=== PATIENT | male | born 1985 | race Caucasian/White ===

== ENCOUNTER 2023-11-19 18:18 | Outpatient (CLI) | payer MEDICAID | END 2023-11-19 23:59 | disposition critical access hospital (66) | LOC: EMS 18:18 | DX: R06.02 Shortness of breath (principal); R05.9 Cough, unspecified; R53.1 Weakness; R09.81 Nasal congestion; R07.9 Chest pain, unspecified | CPT/HCPCS: A0425; A0427; A0999 ==

== ENCOUNTER 2023-11-19 18:37 | Emergency (ER) | payer MEDICAID, OTHER ==
--- NOTE | 2023-11-19 19:33 | ED Physician Documentation ---
PD HPI URI - Stated complaint Stated Complaint: SOA - Chief complaint Chief Complaint: Resp - History obtained from History obtained from: Patient, Family - History of Present Illness Timing duration: Days (Several days) Timing details: Gradual onset Associated symptoms: Nasal congestion, Rhinorrhea. No: Fever, Chills Improves by: Rest, MDI/nebulizer Worsened by: Activity Recently seen: Not recently seen - Additional information Additional information: Patient is a 38-year-old male who complains of nasal congestion and difficulty breathing for the past 2 to 3 days. He was given a nebulizer treatment by EMS and feels like he is breathing here. No fevers. No chills. Has a history of asthma, does not have an inhaler currently. He states that he does not breathe very well through his mouth usually and is so congested in his nose that he feels like he is having difficulty breathing. He took Mariah-D prior to arrival. Review of Systems Constitutional: denies: Fever, Chills GI: denies: Vomiting, Diarrhea PD PAST MEDICAL HISTORY - Past Medical History Past Medical History: Yes Cardiovascular: None Respiratory: Asthma Neuro: None Endocrine/Autoimmune: None GI: None : None HEENT: None Psych: None Musculoskeletal: None Derm: None - Past Surgical History Past Surgical History: Yes Ortho: Other - Present Medications Home Medications: Ambulatory Orders Medication Instructions Recorded Confirmed Albuterol Sulf [Ventolin Hfa 1 - 2 puffs INH Q4HR PRN #1 each 11/19/23 Inhaler] Benzonatate [Tessalon] 200 mg PO TID PRN #30 cap 11/19/23 predniSONE [Deltasone] 40 mg PO DAILY #10 tablet 11/19/23 - Allergies Allergies/Adverse Reactions: Allergies Allergy/AdvReac Type Severity Reaction Status Date / Time codeine Allergy Hives Verified 11/19/23 18:44 vancomycin Allergy Hives Verified 11/19/23 18:44 - Social History Does the pt smoke?: No Smoking Status: Never smoker Does the pt drink ETOH?: No Does the pt have substance abuse?: No - Immunizations Immunizations are current?: Yes - POLST Patient has POLST: No PD ED PE NORMAL - Vitals Vital signs reviewed: Yes - General General: Alert and oriented X 3, No acute distress - HEENT HEENT: PERRL, Ears normal, Moist mucous membranes, Pharynx benign - Neck Neck: Supple, no meningeal sign - Cardiac Cardiac: RRR - Respiratory Respiratory: No respiratory distress, Other (Mild wheezing bilaterally, no respiratory distress) - Abdomen Abdomen: Soft, Non tender, Non distended - Derm Derm: Warm and dry, No rash - Neuro Neuro: Alert and oriented X 3 - Psych Psych: Normal mood, Normal affect Results - Vitals Vitals: Vital Signs - 24 hr 11/19/23 11/19/23 11/19/23 18:44 19:50 20:28 Temperature 37.0 C Heart Rate 82 85 87 Respiratory 18 20 16 Rate Blood Pressure 117/69 98/69 O2 Saturation 93 100 Oxygen O2 Source Room air - Labs Labs: Laboratory Tests 11/19/23 19:35 Nasal Adenovirus (PCR) NOT DETECTED Nasal B. parapertussis DNA (PCR) NOT DETECTED Nasal Coronavir 229E PCR NOT DETECTED Nasal Coronavir HKU1 PCR NOT DETECTED Nasal Coronavir NL63 PCR NOT DETECTED Nasal Coronavir OC43 PCR NOT DETECTED Nasal Enterovir/Rhinovir PCR DETECTED A Nasal Influenza B PCR NOT DETECTED Nasal Influenza A PCR NOT DETECTED Nasal Parainfluen 1 PCR NOT DETECTED Nasal Parainfluen 2 PCR NOT DETECTED Nasal Parainfluen 3 PCR NOT DETECTED Nasal Parainfluen 4 PCR NOT DETECTED Nasal RSV (PCR) NOT DETECTED Nasal B.pertussis DNA PCR NOT DETECTED Nasal C.pneumoniae (PCR) NOT DETECTED Bob Human Metapneumo PCR NOT DETECTED Nasal M.pneumoniae (PCR) NOT DETECTED Nasal SARS-CoV-2 (PCR) NOT DETECTED - Rads (name of study) cxr Relevant Findings:: Final report received, See rad report PD Medical Decision Making - ED course Complexity details: reviewed results, re-evaluated patient, considered differential, d/w patient ED course: 38-year-old male with what appears to be a viral URI. He is positive for rhinovirus on his respiratory panel. He was given prednisone, Afrin and albuterol here. Breathing much easier. No hypoxia. No respiratory distress. We will place him on steroids for home, prescribe an albuterol inhaler and prescribed cough medication. He can also use Afrin for nasal congestion, counseled not to use longer than 2 to 3 days. No pneumonia on chest x-ray. No evidence of sepsis. No hypoxia. No respiratory distress. Patient counseled regarding signs and symptoms for which I believe and urgent re-evaluation would be necessary. Patient with good understanding of and agreement to plan and is comfortable going home at this time This document was made in part using voice recognition software. While efforts are made to proofread this document, sound alike and grammatical errors may occur. Departure - Departure Disposition: 01 Home, Self Care Clinical Impression: Viral URI with cough Condition: Good Instructions: ED Viral Syndrome Follow-Up: your,doctor in 1 week if not better [Other] Prescriptions: Albuterol Sulf [Ventolin Hfa Inhaler] 1 - 2 puffs INH Q4HR PRN #1 each PRN Reason: Shortness Of Air/Wheezing predniSONE [Deltasone] 40 mg PO DAILY #10 tablet Benzonatate [Tessalon] 200 mg PO TID PRN #30 cap PRN Reason: Cough Comments: Your chest x-ray does not show any acute abnormalities today. You can also use Afrin to help with nasal congestion for the next 2 to 3 days, do not use it longer than 3 days. I will contact you later tonight with the results of your respiratory swab. Forms: PCP List Discharge Date/Time: 11/19/23 20:29
[2023-11-19] MEDS: predniSONE 20 MG TABLET PO STA (19:41)
[2023-11-19] MEDS: OXYMETAZOLINE HCL 100 SPRAYS BOTTLE NAS STA (19:41)
[2023-11-19] MEDS: IPRATROPIUM/ALBUTEROL 3 ML NEB INH STA (19:46)
--- NOTE | 2023-11-19 19:46 | XRAY Report ---
PROCEDURE: Chest 1V INDICATIONS: cough TECHNIQUE: One view of the chest was acquired. COMPARISON: None. FINDINGS: Surgical changes and devices: None. Lungs and pleura: No pleural effusions or pneumothorax. Lungs are clear. Mediastinum: Mediastinal contours appear normal. Heart size is normal. Bones and chest wall: No suspicious bony lesions. Overlying soft tissues appear unremarkable. IMPRESSION: No acute cardiopulmonary process. Reviewed by: Tone Nolasco MD on 11/19/2023 7:45 PM PDT Approved by: Tone Nolasco MD on 11/19/2023 7:45 PM PDT Station ID: [id number]
[2023-11-19 20:34] VITALS: BP 98/69; O2SAT 100
[2023-11-19 20:38] LABS: B. PARAPERTUSSIS- RESP PCR PAN NOT DETECTED; B. PERTUSSIS- RESP PCR PANEL NOT DETECTED; C. PNEUMONIAE- RESP PCR PANEL NOT DETECTED; CORONAVIRUS 229E-RESP PCR NOT DETECTED; CORONAVIRUS HKU1-RESP PCR NOT DETECTED; CORONAVIRUS NL63-RESP PCR NOT DETECTED; CORONAVIRUS OC43-RESP PCR NOT DETECTED; HUMAN METAPNEUMOVIRUS NOT DETECTED; INFLUENZA A- RESP PCR PANEL NOT DETECTED; INFLUENZA B - RESP PCR PANEL NOT DETECTED; M. PNEUMONIAE- RESP PCR PANEL NOT DETECTED; PARAINFLUENZA VIRUS 1 NOT DETECTED; PARAINFLUENZA VIRUS 2 NOT DETECTED; PARAINFLUENZA VIRUS 3 NOT DETECTED; PARAINFLUENZA VIRUS 4 NOT DETECTED; RHINOVIRUS/ENTEROVIRUS DETECTED; RSV- RESP PCR PANEL NOT DETECTED; SARS-CoV-2 -RESP PCR PANEL NOT DETECTED
== END 2023-11-19 20:29 | disposition home or self-care (01) ==
LOC: EDUNIT# → ED 18:37
DX: J06.9 Acute upper respiratory infection, unspecified (principal); B97.89 Other viral agents as the cause of diseases classified elsewhere; J45.909 Unspecified asthma, uncomplicated; Z20.818 Contact with and (suspected) exposure to other bacterial communicable diseases; Z20.822 Contact with and (suspected) exposure to COVID-19; Z20.828 Contact with and (suspected) exposure to other viral communicable diseases
CPT/HCPCS: 71045; 87633; 94640; 94664; 99283; 99284; A9270; J7512